=== PATIENT | male | born 1980 | race Caucasian/White ===

== ENCOUNTER 2022-05-29 00:43 | Day surgery (SDC) | payer OTHER, SELFPAY ==
[2022-05-18 13:56] VITALS: BMI 23.3
[2022-05-29 08:19] VITALS: BP 113/75; PULSE 97; RESP 18; TEMP 36.9; O2SAT 100; BMI 22.7
--- NOTE | 2022-05-29 08:24 | P.PNAN_ITS ---
Anes - Initial Pre Proc Eval Procedure: Operation Date: 05/29/22 09:15 Proposed Procedures p Screening Colonoscopy - Shahid Chan MD Date/Time: 05/29/22 08:24 Surgeon: Shahid Chan MD Pre Op Diagnosis: Hx of colon polyps Patient Data Age: 42 Gender: M Height: 1.73 m Weight: 67.8 kg Last Vital Signs Temp 98.4 F 05/29/22 08:19 Pulse 97 05/29/22 08:19 Resp 18 05/29/22 08:19 BP 113/75 05/29/22 08:19 Pulse Ox 100 05/29/22 08:19 O2 Del Method Room Air 05/29/22 08:19 Allergies Allergy/AdvReac Type Severity Reaction Status Date / Time Penicillins Allergy Unknown HIVES Verified 05/29/22 08:18 Home Medications Medication Instructions Recorded Confirmed Type dextroamphetamine-amphetamine ER 20 mg PO DAILY 05/18/22 05/18/22 History 20 mg 24hr capsule,extend release lisinopril 10 mg tablet 10 mg PO DAILY 05/18/22 05/18/22 History Patient hx anesthesia problems: none Family hx anesthesia problems: none Results Review: All pre-operative results and documents have been reviewed as part of the pre- operative evaluation. PMFSH Social History Social History Smoking status: Never smoker Substance use type: does not use Living arrangements: with family Spiritual care concerns: No Anes - Eval Final PreProcedure Day of Procedure 05/29/22 08:24 Patient weight: normal Heart: regular rate and rhythm Lungs: clear to auscultation Airway: Mallampati scale class II Neurological: alert and oriented Last oral intake: >/= 8 hours ASA classification: II Emergent: no Anesthetic plan: proceed Anesthesia type and monitoring: general GIVS and standard monitoring Results Review: All pre-operative results and documents have been reviewed as part of the pre- operative evaluation. Informed Consent: The patient's anesthetic plan and its attendant risks and benefits were discussed with the patient/family/POA. Questions were solicited and answers provided to the satisfaction of the patient/family/POA.
--- NOTE | 2022-05-29 08:28 | P.HP_ITS ---
History of Present Illness History of Present Illness Consent: Risks, benefits, and alternatives have been discussed and questions answered. Patient agrees to proceed with procedure. Chief complaint: Hx of colon polyps Narrative: Mukund Koch is a 42 year old male Presents for follow-up screening colonoscopy. Patient has a history of a juvenile polyp removed from the colon in the year 1999. Patient reports his current weight appetite bowel movements are normal. Patient denies abdominal pain. He has had no bleeding. Family history is significant for maternal uncle who had colon carcinoma. Patient presents today for screening colonoscopy. Review of Systems Review of Systems: Review of systems noncontributory. [facility] Social History Social History Smoking status: Never smoker Substance use type: does not use Living arrangements: with family Spiritual care concerns: No Meds Home Medications and Allergies Home Medications Medication Instructions Recorded Confirmed Type dextroamphetamine-amphetamine ER 20 mg PO DAILY 05/18/22 05/18/22 History 20 mg 24hr capsule,extend release lisinopril 10 mg tablet 10 mg PO DAILY 05/18/22 05/18/22 History Allergies Allergy/AdvReac Type Severity Reaction Status Date / Time Penicillins Allergy Unknown HIVES Verified 05/29/22 08:18 Vital Signs Vital Signs - 24 hr 05/29/22 08:19 Temperature 98.4 F Pulse Rate 97 Respiratory Rate 18 Blood Pressure 113/75 Pulse Oximetry 100 Oxygen Delivery Room Air Exam Narrative: Physical exam reveals patient to be alert. Vital signs stable. HEENT exam is unremarkable. Patient is anicteric. Lungs are clear to auscultation and percussion. Heart is without murmur or extra sounds. Abdomen bowel sounds are present soft nontender with no organomegaly. Digital external rectal exam is normal. Assessment and Plan Assessment and plan (1) History of colon polyps: Code(s): Z86.010 - Personal history of colonic polyps Status: Acute Assessment and Plan: Patient has a distant history of a juvenile polyp. He has done well subsequently. Plan is for surveillance colonoscopy typically every 5-7 years. Further recommendations may be given after endoscopy.
[2022-05-29] MEDS: LACTATED RINGERS 1,000 ML 150 ML IV CONT (08:41)
[2022-05-29 09:24] VITALS: BP 107/62; PULSE 95; RESP 19; O2SAT 100
[2022-05-29 09:34] VITALS: BP 112/69; PULSE 82; RESP 19; O2SAT 100
[2022-05-29 09:44] VITALS: BP 110/69; PULSE 74; RESP 18; O2SAT 99
== END 2022-05-29 09:54 | disposition home or self-care (01) ==
PROVIDERS: PCP Internal Medicine; Visit Provider Internal Medicine Gastroenterology
PROC: 0DJD8ZZ Inspection of Lower Intestinal Tract, Via Natural or Artificial Opening Endoscopic (ICD-10-PCS; CPT 45378; principal; 2022-05-29 09:15)
DX: Z12.11 Encounter for screening for malignant neoplasm of colon (principal); Z86.010 Personal history of colon polyps; K64.8 Other hemorrhoids
CPT/HCPCS: 45378; J2704; J7120